=== PATIENT | female | born 1995 | race African-American/Black ===

== ENCOUNTER 2017-04-27 14:23 | Emergency (ER) | payer OTHER ==
[~2017-04-27] VITALS: Ht 170.2 cm; Wt 50.5 kg
[~2017-04-27 14:23] MED LIST: ZOVI200C24 PO
[2017-04-27 14:26] VITALS: BP 139/65; PULSE 112; RESP 20; TEMP 99; O2SAT 100
--- NOTE | 2017-04-27 18:22 | PD ---
HPI Chief Complaint: GI Complaint Time Seen by Provider: 18:08 Travel History International Travel<30 days: No Contact w/Intl Traveler<30days: No Traveled to known affect area: No History of Present Illness HPI The patient was seen and examined in the presence of the nurse. This patient reports that she had some bright red rectal bleeding this morning. No abdominal pain or presyncopal symptoms. No prior history of GI bleeding. She also noted some blood in her left ear after cleaning with a Q-tip. Symptoms severity is mild. No alleviating factors. Duration one day PFSH Past Medical History Diminished Hearing: No Migraines: Yes Social History Alcohol Use: No Tobacco Use: No (DENIES) Substance Use: No Allergies-Medications (Allergen,Severity, Reaction): Coded Allergies: No Known Allergies (Unverified , 04/27/17) Reported Meds & Prescriptions Reported Meds & Active Scripts Active Reported Zovirax (Acyclovir) 200 Mg Cap 200 Mg PO TID Review of Systems General / Constitutional: No: Fever Eyes: No: Visual changes HENT: No: Headaches Cardiovascular: No: Chest Pain or Discomfort Respiratory: No: Shortness of Breath Gastrointestinal: Positive: Hematochezia, No: Abdominal Pain Genitourinary: No: Dysuria Musculoskeletal: No: Pain Skin: No Rash Neurologic: No: Weakness Psychiatric: No: Depression Endocrine: No: Polydipsia Hematologic/Lymphatic: No: Easy Bruising Physical Exam Narrative GENERAL: Well-nourished, well-developed patient in no apparent distress. SKIN: Focused skin assessment reveals no rash and nodules. Skin is Warm and dry. HEAD: Atraumatic. Normocephalic. EYES: Pupils equal and round. No scleral icterus. No injection or drainage. ENT: No nasal bleeding or discharge. Mucous membranes pink and moist. Right TM and left TM are normal. Left canal has a small area of scabbed dried blood NECK: Trachea midline. No JVD. CARDIOVASCULAR: Regular rate and rhythm. No murmur appreciated. RESPIRATORY: No accessory muscle use. Clear to auscultation. Breath sounds equal bilaterally. GASTROINTESTINAL: Abdomen soft, non-tender, nondistended. Hepatic and splenic margins not palpable. MUSCULOSKELETAL: No obvious deformities. No clubbing. No cyanosis. No edema. NEUROLOGICAL: Awake and alert. No obvious cranial nerve deficits. Motor grossly within normal limits. Normal speech. PSYCHIATRIC: Appropriate mood and affect; insight and judgment normal. Rectal area: No visible external hemorrhoid or fissure Data Data Last Documented VS Vital Signs Date Time Temp Pulse Resp B/P Pulse Ox O2 Delivery O2 Flow Rate FiO2 04/27/17 19:31 83 18 101/71 98 Room Air 04/27/17 14:26 99.0 Orders Ed Urine Pregnancytest Poc (04/27/17 18:19) Complete Blood Count With Diff (04/27/17 18:19) Iv Access Insert/Monitor (04/27/17 18:19) Labs Laboratory Tests Test 04/27/17 18:30 White Blood Count 6.2 TH/MM3 Red Blood Count 4.28 MIL/MM3 Hemoglobin 13.7 GM/DL Hematocrit 38.1 % Mean Corpuscular Volume 89.1 FL Mean Corpuscular Hemoglobin 32.0 PG Mean Corpuscular Hemoglobin 36.0 % Concent Red Cell Distribution Width 12.6 % Platelet Count 173 TH/MM3 Mean Platelet Volume 8.7 FL Neutrophils (%) (Auto) 67.9 % Lymphocytes (%) (Auto) 26.1 % Monocytes (%) (Auto) 5.4 % Eosinophils (%) (Auto) 0.3 % Basophils (%) (Auto) 0.3 % Neutrophils # (Auto) 4.2 TH/MM3 Lymphocytes # (Auto) 1.6 TH/MM3 Monocytes # (Auto) 0.3 TH/MM3 Eosinophils # (Auto) 0.0 TH/MM3 Basophils # (Auto) 0.0 TH/MM3 CBC Comment AUTO DIFF MDM Medical Decision Making Medical Screen Exam Complete: Yes Emergency Medical Condition: Yes Medical Record Reviewed: Yes Differential Diagnosis Internal hemorrhoid, AV malformation, diverticulosis Narrative Course I have reviewed the patient's electronic medical record. IV placed CBC is normal with hemoglobin 13.7 Urine was negative Patient stable for outpatient follow-up. I recommend she follow up with GI physician and they can discuss the risks and benefits and decide upon colonoscopy versus observation Diagnosis Primary Impression: Rectal bleeding Additional Instructions: Follow-up with GI physician Med/Other Pt SpecificInfo: Other Disposition: 01 DISCHARGE HOME Condition: Stable Karthik Stallworth MD Apr 27, 2017 18:22
[2017-04-27 18:46] LABS: AUTOMATED NEUTROPHIL # 4.2 TH/MM3 (1.8-7.7); BASOPHIL % 0.3 % (0.0-2.0); EOSINOPHIL % 0.3 % (0.0-4.0); HEMATOCRIT 38.1 % (35.0-46.0); LYMPH % 26.1 % (9.0-44.0); LYMPHOCYTE # 1.6 TH/MM3 (1.0-4.8); MEAN CELL VOLUME 89.1 FL (80.0-100.0); MONO % 5.4 % (0.0-8.0); NEUT % 67.9 % (16.0-70.0); PLATELET COUNT 173 TH/MM3 (150-450); RED BLOOD COUNT 4.28 MIL/MM3 (4.00-5.30); RED CELL DISTRIBUTION WIDTH 12.6 % (11.6-17.2); WHITE BLOOD COUNT 6.2 TH/MM3 (4.0-11.0)
[2017-04-27 18:49] LABS: HEMO FLAGS AUTO DIFF
[2017-04-27 19:31] VITALS: BP 101/71; PULSE 83; RESP 18; O2SAT 98
[2017-04-27 20:09] LABS: SCAN/DIFF AUTO DIFF CONFIRMED; TEARDROP RBCS 1+ (NORMAL)
== END 2017-04-27 20:00 | disposition home or self-care (01) ==
LOC: NEPD 14:23
DX: K62.5 Hemorrhage of anus and rectum (principal); Z79.899 Other long term (current) drug therapy
CPT/HCPCS: 84703; 85025; 99283